=== PATIENT | female | born 1945 | race Caucasian/White ===

== ENCOUNTER → 2021-12-21 | Outpatient (CLI) | payer MEDICARE ==
--- NOTE | 2021-12-21 16:48 | Diagnostic Imaging Report ---
INDICATION: Lower extremity edema. FINDINGS: A noninvasive study was performed. Ankle brachial indices were 1.2 on the right side at the posterior tibial artery and 1.17 at the dorsalis pedis. The JARRELL decreases to 0.61 at the digital level. On the left side, the ankle brachial index was 1.2 at the posterior tibial artery and 1.01 at the dorsalis pedis. The ankle brachial index drops to 0.59. IMPRESSION: Normal ankle brachial indices down to the ankle level with a decrease in the ankle-brachial indices at the digital level. Dictated by: Dictated on workstation # [id number]
== END ==
LOC: RAD 15:15
PROVIDERS: ATTEND Registered Nurse Emergency
DX: I87.2 Venous insufficiency (chronic) (peripheral) (principal)
CPT/HCPCS: 93922

== ENCOUNTER → 2022-09-12 | Outpatient (CLI) | payer MEDICARE, OTHER ==
--- NOTE | 2022-09-12 12:48 | Diagnostic Imaging Report ---
EXAMINATION: Left knee radiographs, 3 views. COMPARISON: None. HISTORY: 77-year-old female, left knee pain. FINDINGS: There is severe tricompartmental joint space loss. There is tricompartmental osteophyte formation. There is no knee joint effusion. There is no identified acute fracture. 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 Dictated by: Dictated on workstation # [id number]
== END ==
LOC: RAD FS 11:46
PROVIDERS: ATTEND Registered Nurse Emergency
DX: M17.0 Bilateral primary osteoarthritis of knee (principal); I87.2 Venous insufficiency (chronic) (peripheral); I10 Essential (primary) hypertension
CPT/HCPCS: 73562

== ENCOUNTER → 2022-10-04 | Outpatient (CLI) | payer MEDICARE, OTHER ==
--- NOTE | 2022-10-04 09:09 | Diagnostic Imaging Report ---
INDICATION: Pain. FINDINGS: There is severe osteoarthritic change in the right hip. This includes joint space narrowing, subchondral sclerosis and marginal osteophytosis. Some volume loss in the femoral head. There is no fracture or dislocation. Soft tissues are unremarkable. IMPRESSION: Severe osteoarthritic change in the right hip Dictated by: Dictated on workstation # [id number]
--- NOTE | 2022-10-04 09:18 | Diagnostic Imaging Report ---
INDICATION: Knee pain. Three views were obtained. FINDINGS: The alignment is normal. There are postsurgical changes right knee arthroplasty. Hardware is in satisfactory position. There is no loosening. There is no fracture or dislocation. There are some dystrophic calcifications along the inferior patella. IMPRESSION: Stable right knee arthroplasty. Dystrophic calcification along the inferior pole of the patella. Dictated by: Dictated on workstation # [id number]
== END ==
LOC: RAD FS 08:32
PROVIDERS: ATTEND Nurse Practitioner
DX: M16.11 Unilateral primary osteoarthritis, right hip (principal); M25.561 Pain in right knee; Z96.651 Presence of right artificial knee joint
CPT/HCPCS: 73502; 73562

== ENCOUNTER → 2023-02-22 | Outpatient (CLI) | payer MEDICARE, OTHER | LOC: LABNPT 15:05 | PROVIDERS: ATTEND Registered Nurse Emergency | DX: N30.81 Other cystitis with hematuria (principal); R30.0 Dysuria | CPT/HCPCS: 87077; 87088 ==

== ENCOUNTER 2023-04-19 20:42 | Emergency (ER) | payer MEDICARE, OTHER ==
[~2023-04-19] VITALS: Ht 165 cm; Wt 84.8 kg
[2023-04-19] MEDS ORDERED: ONDANSETRON INJECTION 4 MG/2 ML (SDV) IVP ONE (21:00)
[2023-04-19] MEDS ORDERED: ACETAMINOPHEN 500 MG TABLET PO ONE (21:00)
[2023-04-19] MEDS ORDERED: NS IV 1000 ML 1,000 ML IV SCH (21:00)
[2023-04-19] MEDS ORDERED: cefTRIAXone IV/IM 1,000 MG in NS (IVPB) 50 ML 50 ML IV ONE (21:00)
[2023-04-19 21:13] LABS: BASOPHILS % (AUTO) 0 % (0-10); EOSINOPHILS # (AUTO) 0.3 10^3/uL (0.0-0.3); EOSINOPHILS % (AUTO) 3 % (0-10); HEMATOCRIT 38 % (35-52); HEMOGLOBIN 12.2 g/dL (11.5-16.0); LYMPHOCYTES # (AUTO) 0.8 10^3/uL (1.0-4.0); LYMPHOCYTES % (AUTO) 8 % (12-44); MEAN CORPUSCULAR HEMOGLOBIN 28 pg (25-34); MEAN CORPUSCULAR HGB CONC 32 g/dL (32-36); MEAN CORPUSCULAR VOLUME 87 fL (80-99); MEAN PLATELET VOLUME 9.3 fL (9.0-12.2); MONOCYTES # (AUTO) 0.4 10^3/uL (0.0-1.0); MONOCYTES % (AUTO) 4 % (0-12); NEUTROPHILS # (AUTO) 8.3 10^3/uL (1.8-7.8); NEUTROPHILS % (AUTO) 85 % (42-75); PLATELET COUNT 217 10^3/uL (130-400); WHITE BLOOD COUNT 9.7 10^3/uL (4.3-11.0)
[2023-04-19 21:23] LABS: PROTHROMBIN TIME PATIENT 13.8 SEC (12.2-14.7)
[2023-04-19 21:35] LABS: POTASSIUM 3.2 MMOL/L (3.6-5.0)
[2023-04-19 21:36] LABS: ALBUMIN 4.1 GM/DL (3.2-4.5); BILIRUBIN,TOTAL 1.1 MG/DL (0.1-1.0); CALCIUM 8.6 MG/DL (8.5-10.1); CREATININE SERUM 1.03 MG/DL (0.60-1.30); TOTAL PROTEIN 7.6 GM/DL (6.4-8.2)
--- NOTE | 2023-04-19 21:41 | Diagnostic Imaging Report ---
CLINICAL INDICATION: Patient with fever. EXAM: Portable chest x-ray, upright view. COMPARISON: None. FINDINGS: There are mild patchy infiltrates seen throughout both lungs. Slight low lung volumes are noted and superimposed atelectasis may also be considered. There is cardiomegaly with mild pulmonary vascular congestion. There is no pleural effusion or pneumothorax. There are degenerative spurs involving the thoracic spine. There is left curvature of the lumbar spine incompletely imaged. IMPRESSION: 1: There are mild patchy airspace opacities involving both lungs which may be related to lung infiltrates. Pulmonary congestion may also be a consideration. 2: There is cardiomegaly with mild pulmonary vascular congestion. Dictated by: Dictated on workstation # [id number]
[2023-04-19 21:48] LABS: LYMPHOCYTES % (MANUAL) 4 %; MONOCYTES % (MANUAL) 4 %; NEUTROPHILS % (MANUAL) 92 %
--- NOTE | 2023-04-19 21:49 | ED General ---
General Chief Complaint: Fever-Adult/Adol Stated Complaint: VOMITING,FEVER Nursing Triage Note: Patient to ER with family via wc c/o fever, rash on legs and arms, only urinated once today. Patient was diagnosed with UTI on saturday. prescribed macrobid at that x. Source of Information: Patient, Family (Granddaughter), RN Notes Reviewed History of Present Illness Date Seen by Provider: Apr 19, 2023 Time Seen by Provider: 20:51 Initial Comments 78-year-old female patient with history of hypertension and arthritis brought in by family member because of fever and nausea. Patient's granddaughter states that she was seen by her primary care physician 3 days ago because of elevation of blood pressure and was diagnosed with UTI and treated with Macrobid. Patient had temperature of 101 and 102 today and was sleeping all day and had only 1 u rine output. Patient complaining of nausea but unable to vomit. Patient complaining of mild cough. Patient had nonpruritic rash on bilateral lower extremity and bilateral medial side of arm about 2 hours prior to arrival to ER. Patient denies urinary symptoms, chest pain, shortness of breath, sick contact, diarrhea and constipation, urinary frequency and dysuria, history of the same problem. Patient did not take Tylenol since 11 AM today. Allergies and Home Medications Allergies Coded Allergies: No Known Drug Allergies (Unverified , 04/19/23) Patient Home Medication List Home Medication List Reviewed: Yes Ondansetron (Ondansetron Odt) 4 Mg Tab.rapdis, 4 MG PO Q6H PRN for NAUSEA/VOMITING Prescribed by: Ewa gonzalez on 04/19/23 5813 Sulfamethoxazole/Trimethoprim (Bactrim Ds Tablet) 1 Each Tablet, 1 EACH PO BID Prescribed by: Ewa gonzalez on 04/19/23 8901 Review of Systems Review of Systems Constitutional: see HPI EENTM: no symptoms reported Respiratory: no symptoms reported Cardiovascular: no symptoms reported Gastrointestinal: see HPI Genitourinary: see HPI Musculoskeletal: no symptoms reported Skin: see HPI Psychiatric/Neurological: No Symptoms Reported Hematologic/Lymphatic: No Symptoms Reported, See HPI Immunological/Allergic: no symptoms reported Physical Exam Vital Signs Vital Signs - First Documented 04/19/23 20:55 Temp 38.9 Pulse 125 Resp 20 B/P (MAP) 137/72 (93) Pulse Ox 94 O2 Delivery Room Air Capillary Refill : Less Than 3 Seconds Height, Weight, BMI Height: '" Weight: lbs. oz. kg; 31.00 BMI Method: General Appearance: Mild Distress Eyes: Bilateral Eye Normal Inspection, Bilateral Eye PERRL HEENT: PERRL/EOMI, TMs Normal, Other (Dry oral mucosa) Neck: Full Range of Motion, Normal Inspection, Non Tender Respiratory: Chest Non Tender, Lungs Clear, Normal Breath Sounds, No Accessory Muscle Use Cardiovascular: No Murmur, Normal Peripheral Pulses, Tachycardia Gastrointestinal: Normal Bowel Sounds, No Organomegaly, No Pulsatile Mass Back: Normal Inspection, No CVA Tenderness Extremity: Swelling (1+ bilateral lower extremity edema) Neurologic/Psychiatric: Alert, Oriented x3 Skin: Rash (Erythematous macular rash on bilateral lower extremity and medial side of arms) Lymphatic: No Adenopathy Focused Exam Lactate Level 04/19/23 20:55: Lactic Acid Level 1.96 Lactic Acid Level Laboratory Tests Test 04/19/23 20:55 Lactic Acid Level 1.96 MMOL/L (0.50-2.00) Progress/Results/Core Measures Suspected Sepsis SIRS Temperature: Pulse: 125 Respiratory Rate: 20 Laboratory Tests 04/19/23 20:55: White Blood Count 9.7 Blood Pressure 137 /72 Mean: 93 04/19/23 20:55: Lactic Acid Level 1.96 Laboratory Tests 04/19/23 20:55: Creatinine 1.03, INR Comment 1.0, Platelet Count 217, Total Bilirubin 1.1H Results/Orders Lab Results Laboratory Tests Test 04/19/23 20:55 04/19/23 22:30 Range/Units White Blood Count 9.7 4.3-11.0 10^3/uL Red Blood Count 4.37 3.80-5.11 10^6/uL Hemoglobin 12.2 11.5-16.0 g/dL Hematocrit 38 35-52 % Mean Corpuscular Volume 87 80-99 fL Mean Corpuscular Hemoglobin 28 25-34 pg Mean Corpuscular Hemoglobin Concent 32 32-36 g/dL Red Cell Distribution Width 13.5 10.0-14.5 % Platelet Count 217 130-400 10^3/uL Mean Platelet Volume 9.3 9.0-12.2 fL Immature Granulocyte % (Auto) 0 % Neutrophils (%) (Auto) 85 H 42-75 % Lymphocytes (%) (Auto) 8 L 12-44 % Monocytes (%) (Auto) 4 0-12 % Eosinophils (%) (Auto) 3 0-10 % Basophils (%) (Auto) 0 0-10 % Neutrophils # (Auto) 8.3 H 1.8-7.8 10^3/uL Lymphocytes # (Auto) 0.8 L 1.0-4.0 10^3/uL Monocytes # (Auto) 0.4 0.0-1.0 10^3/uL Eosinophils # (Auto) 0.3 0.0-0.3 10^3/uL Basophils # (Auto) 0.0 0.0-0.1 10^3/uL Immature Granulocyte # (Auto) 0.0 0.0-0.1 10^3/uL Neutrophils % (Manual) 92 % Lymphocytes % (Manual) 4 % Monocytes % (Manual) 4 % Prothrombin Time 13.8 12.2-14.7 SEC INR Comment 1.0 0.8-1.4 Activated Partial Thromboplast Time 34 24-35 SEC Sodium Level 134 L 135-145 MMOL/L Potassium Level 3.2 L 3.6-5.0 MMOL/L Chloride Level 98 98-107 MMOL/L Carbon Dioxide Level 20 L 21-32 MMOL/L Anion Gap 16 H 5-14 MMOL/L Blood Urea Nitrogen 10 7-18 MG/DL Creatinine 1.03 0.60-1.30 MG/DL Estimat Glomerular Filtration Rate 56 BUN/Creatinine Ratio 10 Glucose Level 158 H 70-105 MG/DL Lactic Acid Level 1.96 0.50-2.00 MMOL/L Calcium Level 8.6 8.5-10.1 MG/DL Corrected Calcium 8.5 8.5-10.1 MG/DL Total Bilirubin 1.1 H 0.1-1.0 MG/DL Aspartate Amino Transf (AST/SGOT) 13 5-34 U/L Alanine Aminotransferase (ALT/SGPT) 8 0-55 U/L Alkaline Phosphatase 110 40-136 U/L Pro-B-Type Natriuretic Peptide 219.4 <450.0 PG/ML Total Protein 7.6 6.4-8.2 GM/DL Albumin 4.1 3.2-4.5 GM/DL Influenza Type A (RT-PCR) Not Detected Not Detecte Influenza Type B (RT-PCR) Not Detected Not Detecte SARS-CoV-2 RNA (RT-PCR) Not Detected Not Detecte Urine Color YELLOW Urine Clarity TURBID Urine pH 7.0 5-9 Urine Specific [place] 1.015 L 1.016-1.022 Urine Protein 2+ H NEGATIVE Urine Glucose (UA) NEGATIVE NEGATIVE Urine Ketones TRACE H NEGATIVE Urine Nitrite NEGATIVE NEGATIVE Urine Bilirubin NEGATIVE NEGATIVE Urine Urobilinogen 0.2 < = 1.0 MG/DL Urine Leukocyte Esterase 3+ H NEGATIVE Urine RBC (Auto) 2+ H NEGATIVE Urine RBC NONE /HPF Urine WBC TNTC H /HPF Urine Crystals NONE /LPF Urine Bacteria LARGE H /HPF Urine Casts NONE /LPF Urine Mucus NEGATIVE /LPF Urine Culture Indicated NO My Orders Orders - EWA GONZALEZ MD Cbc And Automated Diff (04/19/23 20:55) Comprehensive Metabolic Panel (04/19/23 20:55) Blood Culture (04/19/23 20:55) Urinalysis (04/19/23 20:55) Urine Culture (04/19/23 20:55) Protime With Inr (04/19/23 20:55) Partial Thromboplastin Time (04/19/23 20:55) Chest 1 View Ap/Pa Only (04/19/23 20:55) Ed Iv/Invasive Line Start (04/19/23 20:55) Lactic Acid Analyzer (04/19/23 20:55) Covid 19 Inhouse Test (04/19/23 20:58) Influenza A And B By Pcr (04/19/23 20:58) Acetaminophen Tablet (Acetaminophen Ta (04/19/23 21:00) Ondansetron Injection (Ondansetron Inj (04/19/23 21:00) Ns Iv 1000 Ml (Ns Iv 1000 Ml) (04/19/23 21:00) Ceftriaxone Iv/Im (Ceftriaxone Iv/Im) (04/19/23 21:00) Manual Differential (04/19/23 20:55) Probnp Fs (04/19/23 21:54) Potassium Chloride (Tablet) (Potassium C (04/19/23 22:30) Medications Given in ED Current Medications Medications Dose Ordered Sig/Marcell Route Start Time Stop Time Status Last Admin Dose Admin Acetaminophen 1,000 mg ONCE ONCE PO 04/19/23 21:00 04/19/23 21:01 DC 04/19/23 21:21 1,000 MG Ceftriaxone Sodium 1000 mg/ Sodium Chloride 50 ml @ 100 mls/hr ONCE ONCE IV 04/19/23 21:00 04/19/23 21:29 DC 04/19/23 21:22 100 MLS/HR Ondansetron HCl 4 mg ONCE ONCE IVP 04/19/23 21:00 04/19/23 21:01 DC 04/19/23 21:22 4 MG Vital Signs/I&O 04/19/23 04/19/23 20:55 21:21 Temp 38.9 38.9 Pulse 125 Resp 20 B/P (MAP) 137/72 (93) Pulse Ox 94 O2 Delivery Room Air Capillary Refill : Less Than 3 Seconds Blood Pressure Mean: 93 Progress Note : Progress Note Differential diagnosis: Sepsis, UTI, COVID, influenza, pneumonia, viral illness. Patient with fever of 102 at arrival to ER and nausea and not feeling good. Patient diagnosed with UTI and currently taking nitrofurantoin. Patient treated with IV fluid, Zofran, Tylenol and Rocephin in ER. CBC, CMP, BNP, lactic Acid, UA, chest x-ray, COVID and flu was ordered and reviewed by me and showed UTI and potassium of 3.2. Chest x-ray showed infiltrate. Patient did not have leukocytosis or elevation of lactic acid. Patient felt better with treatment in ER and advised to stop taking nitrofurantoin and Bactrim was given. Patient advised to take home potassium. Patient tolerated oral intake and ambulated well. Diagnostic Imaging Diagonstic Imaging: Xray Plain Films/CT/US/NM/MRI: chest Comments 1 view chest x-ray interpreted by me and showed pulmonary infiltrate. 1 view chest x-ray interpreted by radiologist and reviewed by me and showed: [facility], [place] NAME: MARIA DEL CARMEN MONZON [facility] REC#: [id number] PT STATUS: REG ER : 1945 PHYSICIAN: EWA GONZALEZ MD ADMIT DATE: 04/19/23/ER FS Draft Date of Exam:04/19/23 CHEST 1 VIEW AP/PA ONLY CLINICAL INDICATION: Patient with fever. EXAM: Portable chest x-ray, upright view. COMPARISON: None. FINDINGS: There are mild patchy infiltrates seen throughout both lungs. Slight low lung volumes are noted and superimposed atelectasis may also be considered. There is cardiomegaly with mild pulmonary vascular congestion. There is no pleural effusion or pneumothorax. There are degenerative spurs involving the thoracic spine. There is left curvature of the lumbar spine incompletely imaged. IMPRESSION: 1: There are mild patchy airspace opacities involving both lungs which may be related to lung infiltrates. Pulmonary congestion may also be a consideration. 2: There is cardiomegaly with mild pulmonary vascular congestion. Dictated on workstation # [id number] Dict: 04/19/232123 Trans: 04/19/232139 [id number] Interpreted by: GEOVANNI AGUILERA MD Electronically signed by: Departure Impression Primary Impression: Urinary tract infection Qualified Codes: N39.0 - Urinary tract infection, site not specified Additional Impressions: Fever in adult Pneumonia Qualified Codes: J18.9 - Pneumonia, unspecified organism Nausea Hypokalemia Disposition: HOME, SELF-CARE Condition: Improved Departure-Patient Inst. Decision time for Depature: 22:51 Referrals: TYLER DUVALL APRN (PCP) Primary Care Physician KEN BEE MD (Family) Primary Care Physician Patient Instructions: Dehydration, Adult (DC), Hypokalemia (DC), Nausea and Vomiting, Adult (DC), Urinary Tract Infection, Adult ED, Nausea and Vomiting, Adult ED, Pneumonia in adults Add. Discharge Instructions: Start taking home potassium Drink plenty of liquids Stop taking nitrofurantoin Follow-up with your primary care physician in 3 to 4 days Return to ER as needed Take Tylenol every 6 hours 1000 mg for fever and pain All discharge instructions reviewed with patient and/or family. Voiced understanding. Scripts Ondansetron (Ondansetron Odt) 4 Mg Tab.rapdis 4 MG PO Q6H PRN for NAUSEA/VOMITING, #12 TAB 0 Refills Prov: EWA GONZALEZ MD 04/19/23 Sulfamethoxazole/Trimethoprim (Bactrim Ds Tablet) 1 Each Tablet 1 EACH PO BID, #14 TAB Prov: EWA GONZALEZ MD 04/19/23 EWA GONZALEZ MD Apr 19, 2023 21:49
[2023-04-19] MEDS ORDERED: POTASSIUM CHLORIDE 20 MEQ TABLET PO ONE (22:30)
[2023-04-19 22:33] LABS: BILIRUBIN,URINE NEGATIVE (NEGATIVE); COLOR,URINE YELLOW; GLUCOSE, URINE (UA) NEGATIVE (NEGATIVE); KETONES,URINE TRACE (NEGATIVE); LEUKOCYTE ESTERASE ,URINE 3+ (NEGATIVE); NITRITE,URINE NEGATIVE (NEGATIVE); PROTEIN,URINE 2+ (NEGATIVE)
[2023-04-19 22:37] LABS: BACTERIA,URINE LARGE /HPF; CLARITY,URINE TURBID; WBC,URINE TNTC /HPF
[2023-04-19] MEDS ORDERED: ONDA4TAB11 PO (22:54)
[2023-04-19] MEDS ORDERED: SULF1TAB38 PO (22:54)
[2023-04-19 23:00] VITALS: BP 158/89
== END 2023-04-19 23:00 | disposition home or self-care (01) ==
LOC: EDUNIT# 20:42 → ER FS 20:44
DX: N39.0 Urinary tract infection, site not specified (principal); J18.9 Pneumonia, unspecified organism; E87.6 Hypokalemia; R11.2 Nausea with vomiting, unspecified; Z20.822 Contact with and (suspected) exposure to COVID-19
CPT/HCPCS: 36415; 71045; 80053; 81000; 83605; 83880; 85007; 85027; 85610; 85730; 87040; 87088; 87636